=== PATIENT | male | born 1965 | race Caucasian/White ===

== ENCOUNTER 2016-07-02 08:14 | Day surgery (SDC) | payer BC, OTHER ==
[~2016-07-02] VITALS: Ht 182.9 cm; Wt 127.0 kg
--- NOTE | 2016-07-02 08:33 | ED Lower Extremity ---
General Chief Complaint: Lower Extremity Stated Complaint: LEFT LEG/KNEE INJURY Nursing Triage Note: ARRIVED IN A BACK OF A TRUCK AFTER FALLING DOWN 3 STARIS AND TWISTING HIS LEFT KNEE ET HE THINKS HIS LEG IS BROKE. Nursing Sepsis Screen: No Definite Risk Source: patient Exam Limitations: no limitations History of Present Illness Time seen by provider: 08:32 Initial Comments The patient is a 51-year-old white male who reports he was walking down the back steps at his home. The steps were relatively spongy and he felt as if he twisted his right knee causing him to fall down 2 or 3 steps. He was unable to stand. A neighbor had a leg brace which they applied and his son placed him in the back of a pickup and brought him to the emergency room. They had called ahead and a gurney was waiting he reports that there isn't much pain if he doesn 't move. There is no previous history of injury to either leg. Allergies and Home Medications Allergies Coded Allergies: No Known Drug Allergies (Unverified , 07/02/16) Home Medications No Active Prescriptions or Reported Meds Past Dkdholx-Asebtv-Aedujp Hx Patient Social History Alcohol Use: Occasionally Uses Recreational Drug Use: No Smoking Status: Never a Smoker Recent Foreign Travel: No Contact w/Someone Who Travel: No Recent Infectious Disease Expo: No Recent Hopitalizations: No Surgeries HX Surgeries: Yes Surgeries: Orthopedic Respiratory Hx Respiratory Disorders: No Cardiovascular Hx Cardiac Disorders: No Neurological Hx Neurological Disorders: No Reproductive System Hx Reproductive Disorders: No Genitourinary Hx Genitourinary Disorders: No Gastrointestinal Hx Gastrointestinal Disorders: No Musculoskeletal Hx Musculoskeletal Disorders: No Endocrine Hx Endocrine Disorders: No HEENT HX ENT Disorders: No Cancer Hx Cancer: No Psychosocial Hx Psychiatric Problems: No Physical Exam Vital Signs Vital Sign - Last 12Hours 07/02/16 08:17 Temp 98.0 Pulse 76 Resp 18 B/P (MAP) 133/88 Pulse Ox 96 Capillary Refill : Less Than 3 Seconds Progress/Results/Core Measures Results/Orders My Orders Orders - DONALD GOODRICH MD Femur, Left, 2 Views (07/02/16 08:34) Fentanyl Injection (Sublimaze Injection (07/02/16 08:45) Ondansetron Injection (Zofran Injectio (07/02/16 09:00) Ondansetron Injection (Zofran Injectio (07/02/16 08:48) Knee, Left, 3 Views (07/02/16 09:21) Mri Lt Lower Ext Joint W/O (07/02/16 10:45) Fentanyl Injection (Sublimaze Injection (07/02/16 11:00) Ondansetron Oral Dissolve Tab (Zofran (07/02/16 11:00) Medications Given in ED Current Medications Medications Dose Ordered Sig/Zak Route Start Time Stop Time Status Last Admin Dose Admin Fentanyl Citrate 50 mcg ONCE ONCE IVP 07/02/16 08:45 07/02/16 08:46 DC 07/02/16 08:45 50 MCG Fentanyl Citrate 50 mcg Q1H PRN IVP 07/02/16 11:00 07/02/16 11:01 50 MCG Ondansetron HCl 4 mg ONCE ONCE IVP 07/02/16 09:00 07/02/16 09:01 DC 07/02/16 08:51 4 MG Ondansetron HCl 4 mg ONCE ONCE PO 07/02/16 11:00 07/02/16 11:01 DC 07/02/16 11:01 4 MG Vital Signs/I&O Vital Sign - Last 12Hours 07/02/16 08:17 Temp 98.0 Pulse 76 Resp 18 B/P (MAP) 133/88 Pulse Ox 96 Blood Pressure Mean: 103 Departure Communication Progress Notes [address] Delarosa. He would be glad to see the patient. He suggested that if MR were available today that an MRI be done. This was possible and has been done. [address] Presley. There is a complete avulsion of the distal patellar tendon at the distal border of the patella. 1217 discussed the findings with Dr. Delarosa. The patient has been nothing by mouth and will be taken to the OR for reattachment later this afternoon. Cosleep Impression Impression: Primary Impression: ruptured distal left patellar tendon Disposition: ADMITTED INPATIENT Condition: Stable/Unchanged Decision to Admit/Date: Jul 02, 2016 Departure-Patient Inst. Referrals: NO,LOCAL PHYSICIAN (PCP/Family) Primary Care Physician Scripts No Active Prescriptions or Reported Meds DONALD GOODRICH MD Jul 02, 2016 08:33
[2016-07-02] MEDS ORDERED: fentaNYL INJECTION 100 MCG/2 ML AMP IVP ONE (08:45)
[2016-07-02] MEDS ORDERED: ONDANSETRON 4 MG/2 ML (SDV) Z0FRAN ONE ×2 (08:48→14:02)
[2016-07-02] MEDS ORDERED: ONDANSETRON 4 MG/2 ML (SDV) Z0FRAN IVP ONE (09:00)
--- NOTE | 2016-07-02 09:21 | Diagnostic Imaging Report ---
AP and lateral views of the left femur. INDICATION: Left swelling and pain. FINDINGS: No fracture, dislocation or radiopaque foreign body. There is a lateral osteophyte along the left acetabulum. There is also flattening of the head and neck junction in the left hip. These findings could correlate with tip impingement in the appropriate clinical setting. IMPRESSION: No acute process. Dictated by: Dictated on workstation # [id number]
--- NOTE | 2016-07-02 10:28 | Diagnostic Imaging Report ---
EXAM: 3 views of the left knee. INDICATION: Anterior knee pain at the tibial tuberosity level. FINDINGS: There is patella erendira. The upper aspect of the patellar tendon area appears poorly defined. There is a prominent suprapatellar effusion. There is a small well-defined osseous outgrowth projecting anteriorly from the patella. This could be a small osteochondroma. Significant soft tissue swelling anteriorly is seen. There is prominent ossification at the tibial tuberosity. There is no active erosion or fracture seen. There is a small bony outgrowth seen from the undersurface of the lateral aspect of the lateral tibial condyle which may relate to a small osteochondroma. IMPRESSION: Prominent anterior soft tissue swelling with poorly defined patellar tendon proximally. Correlate clinically for possible proximal patellar tendon rupture. There is a moderate suprapatellar effusion. Further evaluation with knee MRI is suggested. Dictated by: Dictated on workstation # [id number]
[2016-07-02] MEDS ORDERED: fentaNYL INJECTION 100 MCG/2 ML AMP IVP PRN ×3 (11:00→16:15)
[2016-07-02] MEDS ORDERED: ONDANSETRON 4 MG (ZOFRAN) ORAL DISSOLVE TAB PO ONE (11:00)
--- NOTE | 2016-07-02 12:30 | Diagnostic Imaging Report ---
PROCEDURE: MRI left joint lower extremity without contrast. TECHNIQUE: Multiplanar, multisequence non contrast-enhanced MRI of the left lower extremity was accomplished. INDICATION: Fall. Left knee pain. FINDINGS: There is a full-thickness tear of the proximal patellar tendon with 2.5 cm of retraction. There is hyperostosis inferiorly along the patella which could be secondary to old injury or reactive enthesopathy to pre-existing tendinosis. There is also suggestion of pre-existing tendinosis along the distal insertion of the patellar tendon with no acute injury at this location. The quadriceps distal tendon is thickened and is associated with slight increased signal compatible with tendinosis or old injury as well. There is significant soft tissue swelling around the anterior aspect of the knee with a moderate suprapatellar knee effusion and moderate distention of the prepatellar bursa. This is presumably posttraumatic. There is also full thickness tear with retraction of about 1.7 cm seen in the lateral patellofemoral retinaculum. This could be related to an unrelated coexisting or old injury. No significant marrow contusion is seen. This may suggest that such a severe tendon injury has occurred on an abnormal weakened tendon from prior injury or tendinosis. There is minimal subchondral focal edema in the mid patella associated with mild fissuring of the patellar cartilage mostly in the central and medial aspect. The cartilage in the medial and lateral compartments demonstrate minimal fissuring compatible with mild degenerative change. The ACL demonstrates slight thickening likely from an old injury with no disruption of its fibers however. The PCL is intact. The medial meniscus demonstrates no tear. The posterior root of the lateral meniscus demonstrates increased signal at its undersurface, may relate to degeneration. Similar abnormality is seen in the anterior root of the lateral meniscus. Nondisplaced tears are possible. The lateral collateral ligament complex and the MCL appear intact. The edema adjacent to the MCL is likely extension from the anterior soft tissue edema with no definite direct injury to the MCL. There is a 9 mm cystic lesion posterior to the intercondylar notch of the femur abutting the posterior joint capsule area suggestive of a ganglion cyst. No significant Hanley's cyst. IMPRESSION: 1. Retracted full-thickness tear of the proximal patellar tendon. There are signs of pre-existing tendinosis or possible component of an old injury to the patellar tendon and distal quadriceps tendon. 2. Large soft tissue swelling and distention of the prepatellar bursa with a moderate suprapatellar effusion. 3. There is a full-thickness tear with retraction along the lateral patellofemoral retinaculum. 4. Increased signal in the anterior and posterior roots of the lateral meniscus may relate to degeneration or nondisplaced focal tears. The findings were discussed with Dr. Corona at time of dictation. Dictated by: Dictated on workstation # [id number]
[2016-07-02] MEDS: LACTATED RINGERS 1,000 ML IV SCH ×3 (13:42→18:32)
[2016-07-02] MEDS ORDERED: MIDAZOLAM 2 MG/2 ML (VERSED) VIAL ONE (13:52)
[2016-07-02] MEDS ORDERED: fentaNYL INJECTION 250 MCG/5 ML AMP ONE (13:52)
[2016-07-02] MEDS ORDERED: LIDOCAINE PF 2% 10 ML (XYLOCAINE) AMP ONE (13:52)
[2016-07-02] MEDS ORDERED: SUCCINYLCHOLINE INJ 100 MG/5 ML SYR ONE (13:52)
[2016-07-02] MEDS ORDERED: proPOfol 200 MG/20 ML (DIPRIVAN) VIAL IV ONE (13:52)
[2016-07-02] MEDS ORDERED: ceFAZolin 2 GM/50 ML NS 50 ML IV ONE ×2 (13:53→14:00)
[2016-07-02] MEDS ORDERED: DEXAMETHASONE PF 10 MG/ML (DECADRON) VIAL ONE (14:02)
[2016-07-02] MEDS ORDERED: SEVOFLURANE (ULTANE) 15 ML INHAL SOLN ONE ×4 (14:02→16:05)
[2016-07-02] MEDS ORDERED: LACTATED RINGERS 1,000 ML IV ONE (14:02)
[2016-07-02] MEDS ORDERED: METOCLOPRAMIDE INJ 10 MG/2 ML (REGLAN) IV PRN (14:15)
[2016-07-02] MEDS ORDERED: ONDANSETRON 4 MG/2 ML (SDV) Z0FRAN IV PRN (14:15)
--- NOTE | 2016-07-02 14:15 | History & Physical-Surgical ---
HPO-Surgical History of Present Illness Chief Complaint: ARRIVED IN A BACK OF A TRUCK AFTER FALLING DOWN 3 STARIS AND TWISTING HIS LEFT chasing a cat. . While in the ED, x-rays showed patella erendira which indicated a torn patell tendon. MRI was perform comfirming a torn patella tendon with no fractures. Dr. Delarosa was consulted and felt the tendon needed to be repaired. Since the patient had been NPO since early this morning, he was taking to surgery today. Weight (Pounds): 280 Height (Feet): 6 Allergies and Home Medications Allergies Coded Allergies: No Known Drug Allergies (Unverified , 07/02/16) Home Medications No Active Prescriptions or Reported Meds Past Rdgfzih-Pkapmj-Oykduf Hx Patient Social History Alcohol Use: Occasionally Uses Recreational Drug Use: No Smoking Status: Never a Smoker Recent Foreign Travel: No Contact w/other who traveled: No Recent Hopitalizations: No Recent Infectious Disease Expo: No Surgeries HX Surgeries: Yes Surgeries: Orthopedic Respiratory Hx Respiratory Disorders: No Cardiovascular Hx Cardiovascular Disorders: No Neurological Hx Neurological Disorders: No Reproductive System Hx Reproductive Disorders: No Genitourinary Hx Genitourinary Disorders: No Gastrointestinal Hx Gastrointestinal Disorders: Yes Gastrointestinal Disorders: Gastroesophageal Reflux Musculoskeletal Hx Musculoskeletal Disorders: No Endocrine Hx Endocrine Disorders: No HEENT HX ENT Disorders: No Cancer Hx Cancer: No Psychosocial Hx Psychiatric Problems: No Exam Vital Signs Vital Signs 07/02/16 07/02/16 08:17 13:08 Temp 98.0 Pulse 77 Resp 16 B/P (MAP) 133/88 Pulse Ox 98 Capillary Refill : Less Than 3 Seconds General Appearance: Alert, Oriented X3 HEENT: PERRLA Respiratory: Clear to Auscultation, Normal Air Movement Cardiovascular: Regular Rate, Normal S1, Normal S2, No Murmurs Abdominal: Normal Bowel Sounds, Soft, No Tenderness, No Hepatosplenomegaly, No Masses Extremities: Other (left knee swollen and pain to the touch. Patella is retracted anterior to the knee joiont line. N/V/M/I left foot) Skin: No Rashes, No Breakdown, No Significant Lesion Neuro: Normal Gait, Normal Speech, Strength at 5/5 X4 Ext, Normal Tone, Sensation Intact, Cranial Nerves 3-12 NL, Reflexes 2+ Psych/Mental Status: Mental Status NL, Mood NL Assessment/Plan Assessment and Plan Assessment: Left knee patella tendon rupture Plan: Patient will be taken to surgery today for open patella tendon repair. Problems: JENI RESENDIZ Jul 02, 2016 14:15
--- NOTE | 2016-07-02 15:02 | Physical Therapy Progress Note ---
Therapy Progress Note Patient is in surgery for left patellar tendon repair. RN, Jeovanny, notified to contact ext. [phone] after 3 p.m., aPul, PT, if patient requires PT on this date. If not, PT will begin in a.m. RAJAN LIAO PT Jul 02, 2016 15:02
[2016-07-02] MEDS ORDERED: ROPIVACAINE 5MG/ML 30ML VIAL ONE (15:14)
[2016-07-02] MEDS ORDERED: PHENYLEPHRINE 100 MCG/ML 10 ML (ANESTHESIA) SYR ONE (15:15)
--- NOTE | 2016-07-02 15:40 | Progress Note-Post Operative ---
Post-Operative Progess Note Surgeon (s)/Chief Internal Auditor (s) Surgeon JOEY ALLEN MD Chief Internal Auditor: Rangel Elam PA-C Pre-Operative Diagnosis left patellar ligament tear Post-Operative Diagnosis same Post-Op Procedure Note Date of Procedure: Jul 02, 2016 Name of Procedure Performed: Repair left patellar ligament Description of the Procedure: see dictation Findings of the Procedure tear of patellar ligament Anesthesia Type General with femoral nerve block placed for postoperative pain control Estimated blood loss (mL): 100 ml (mostly hematoma from knee trauma) Packing: none Specimen(s) collected/removed none JOEY ALLEN MD Jul 02, 2016 15:40
[2016-07-02] MEDS: morphine INJ 10 MG/ML 1ML (SYR OR VIAL) IVP PRN ×3 (16:16→18:30)
[2016-07-02] MEDS: HYDROmorphone (DILAUDID) 2 MG/ML VIAL IVP PRN ×3 (16:32→16:53)
[2016-07-02 17:20] VITALS: BP 133/84
[2016-07-02] MEDS: oxyCODONE/APAP 5/325MG (PERCOCET 5) TABLET PO PRN (17:25)
[2016-07-02] MEDS: BACLOFEN 10 MG (LIORESAL) TAB PO PRN (17:26)
[2016-07-02] MEDS: DOCUSATE SODIUM 100 MG (COLACE) CAP PO SCH (19:59)
[2016-07-02 20:00] VITALS: BP 143/83
[2016-07-02] MEDS ORDERED: MEPERIDINE (DEMEROL) INJ 50 MG/ML IM PRN ×2 (20:00→20:15)
[2016-07-02] MEDS: HYDROcodone/APAP 10 MG/325 MG (LORTAB) TAB PO PRN (21:36)
[2016-07-03] VITALS: BP 122/80
[2016-07-03] MEDS: morphine INJ 10 MG/ML 1ML (SYR OR VIAL) IVP PRN ×5 (00:10→12:36)
[2016-07-03 04:00] VITALS: BP 126/79
[2016-07-03] MEDS: LACTATED RINGERS 1,000 ML IV SCH (04:25)
[2016-07-03] MEDS: HYDROcodone/APAP 10 MG/325 MG (LORTAB) TAB PO PRN ×2 (07:12→12:37)
[2016-07-03 08:00] VITALS: BP 126/87
[2016-07-03] MEDS: DOCUSATE SODIUM 100 MG (COLACE) CAP PO SCH (08:11)
[2016-07-03] MEDS: oxyCODONE/APAP 5/325MG (PERCOCET 5) TABLET PO PRN (08:11)
[2016-07-03] MEDS: BACLOFEN 10 MG (LIORESAL) TAB PO PRN (08:11)
[2016-07-03] MEDS ORDERED: OMEP20TA33 PO (10:40)
[2016-07-03] MEDS ORDERED: OXYC-202 PO (10:40)
[2016-07-03] MEDS ORDERED: BACL10TA PO (10:40)
--- NOTE | 2016-07-03 10:54 | Discharge Inst-Surgical ---
Discharge Inst-Surgical Depart Medication/Instructions New, Converted or Re-Newed RX: RX Given to Pt/Family Patient Instructions Patient is to follow up with Dr. Delarosa in [facility] [place]. Activity Activity as Tolerated: No touch toe weight bearing in brace with walker only. Walking Assistive Device: Walker Elevate Extremity: Elevate Above Heart, Elevate as Instructed Driving Instructions: No Driving/Refer to Dr. Martinez Discharge Diet: No Restrictions Symptoms to Report to Physicia: Extremity Discoloration, Numbness/Tingling, Swelling Increased, Bleeding Excessive, Urination Difficulty If Any Problems/Questions/Issu: Contact Your Physician Skin/Wound Care Infection Signs and Symptoms: Foul Odor of Wound Bathing Instructions: Shower Operative Area Clean and Dry: Keep Incision Clean/Dry Stitches/Mckenzie/Dermabond Dis: Care of Mckenzie Ice Pack: Ice On and Off Site JENI RESENDIZ Jul 03, 2016 10:54
--- NOTE | 2016-07-03 10:57 | Progress Note (SOAP) ---
Subjective Subjective/Events-last exam Patient doing fine and ready to go home. Objective Exam Vital Signs Date Time Temp Pulse Resp B/P (MAP) Pulse Ox O2 Delivery O2 Flow Rate FiO2 07/03/16 08:00 97.9 73 18 126/87 99 Room Air 07/03/16 04:00 97.1 74 20 126/79 94 Room Air 07/03/16 00:00 98.0 81 18 122/80 94 Room Air 07/02/16 20:00 98.9 87 19 143/83 95 Room Air 07/02/16 17:20 98.7 83 18 133/84 95 Room Air 07/02/16 13:08 77 16 98 I & O 07/03/16 07:00 Intake Total 3370 ml Output Total 1775 ml Balance 1595 ml Capillary Refill : Less Than 3 SecondsLess Than 3 Seconds General Appearance: No Apparent Distress, WD/WN HEENT: PERRL/EOMI, TMs Normal, Normal ENT Inspection, Pharynx Normal Neck: Full Range of Motion, Normal Inspection, Non Tender, Supple Peripheral Pulses: 4+ Dorsalis Pedis (R) Gastrointestinal: non tender, soft Extremity: Normal Capillary Refill, Normal Inspection Neurologic/Psychiatric: Alert, Oriented x3 Skin: Normal Color Other comments Dressing dry clean and intact. Clinical Quality Measures DVT/VTE Risk/Contraindication: Risk Factor Score Per Nursin RFS Level Per Nursing on Admit: 1=Low/No VTE PPX JENI RESENDIZ Jul 03, 2016 10:57
--- NOTE | 2016-07-03 11:31 | Physical Therapy Evaluation ---
PT Evaluation-General Medical Diagnosis Admission Date Jul 02, 2016 at 15:46 Medical Diagnosis: Rupture (L) distal patellar tendon with repair Onset Date: Jul 02, 2016 Therapy Diagnosis Therapy Diagnosis: impaired gait Height/Weight Height (Feet): 6 Height (Inches): 0.00 Weight (Pounds): 280 Weight (Ounces): 0.0 Precautions Precautions/Isolations: Fall Prevention, Standard Precautions Weight Bear Status Weight Bearing Restriction: Touch Toe Bearing Location Restriction: L LE Comments knee immobilizer on at all times Referral Physician: Esvin Delarosa MD Reason for Referral: Evaluation/Treatment Medical History Pertinent Medical History: GERD Current History 07/02/16 patient was trying to scare of a stray cat. He lost his balance and fell down 3 steps. Pt tore the patellar tendon and underwent surgery on . Social History Home: Single Level Current Living Status: Spouse Entry Into Home: Stairs With Railing PT Steps Into Home: 3 Prior/Core FIM Prior Level of Function Functional [place] Measure 0=Not Assessed/NA 4=Minimal Assistance 1=Total Assistance 5=Supervision or Setup 2=Maximal Assistance 6=Modified [place] 3=Moderate Assistance 7=Complete [place] Bed Mobility: 7 Transfers (B,C,W/C) (FIM): 7 Gait: 7 Locomotion: 7 PT Evaluation-Current Subjective Pt reports he was full independent prior to this event. This was just a freak accident. He notes that he is currently not in pain, but is heavily medicated so not sure how his balance will be. Objective Patient Orientation: Normal For Age Problem Solving: Good Attachments: IV ROM/Strength ROM Upper Extremities WFL ROM Lower Extremities (R) leg is WFL, (L) hip is WFL for flex and ABD, (L) knee is not tested Strength Upper Extremities 5/5 throughout Strenght Lower Extremities (R) 5/5 throughout, (L) hip flex 3+/5 Neuromuscular (Tone, Coordination, Reflexes) intact Sensory Vision: Wears Glasses Hearing: Functional Hand Dominance: Right Sensation Right Upper Extremit: Intact Sensation Left Upper Extremity: Intact Sensation Right Lower Extremit: Intact Sensation Left Lower Extremity: Intact Transfers Functional [place] Measure 0=Not Assessed/NA 4=Minimal Assistance 1=Total Assistance 5=Supervision or Setup 2=Maximal Assistance 6=Modified [place] 3=Moderate Assistance 7=Complete [place] Transfers (B, C, W/C) (FIM): 4 Scootin Supine to/from Sit: 4 Sit to/from Stand: 4 Gait Mode of Locomotion: Walk Anticipated Mode of Locomotion: Walk Distance (FIM): 9=480-71 ft Distance: 50 Gait Level of Assist: 4 Gait Persons Needed: 1 Gait Assistive Device: Crutches Comments/Gait Description Ambulated at toe touch wt bearing status using both crutches and a FWW. Patient felt he was more comfortable on the walker for right now because of pain medication. Balance Sitting Static: Normal Sitting Dynamic: Normal Standing Static: Fair Standing Dynamic: Fair Assessment/Needs Pt needs minimal assistance to get the (L) leg in and out of bed. He needs minimal assist for steadying during standing and gait activities. Patient shows potential to improve balance during gait using axillary crutches once his pain levels decline and pain medication use is decreased. For now a FWW is recommended for ambulation. Rehab Potential: Good Equipment Needs front wheel walker, raised toilet seat or commode PT Site Auditor Goals Correction Goals PT Correction Goals Time Frame: Jul 05, 2016 Transfers (B,C,W/C) (FIM): 6 Gait (FIM): 5 Gait distance (FIM): 3=549-84 ft Distance: 100 Gait Level of Assist: 5 Gait Assistive Device: FWW PT Plan Problem List Problem List: Safety, Gait, Transfer Treatment/Plan Treatment Plan: Continue Plan of Care Treatment Plan: Bed Mobility, Gait, Safety, Transfers Work on home safety training and progression of gait. Pt was educated on stairs but was not physically able to perform stairs at time of evaluation. He reports he has someone to build him an extra stair rail and a strong son who can help him. Treatment Duration: Jul 05, 2016 # of days/week 1 Minutes/Day (M-F): 5 Minutes/Day (Sat/[place]): 15 Pt/Family Agrees w/Plan: Yes Safety Risks/Education Patient Education: Gait Training, Transfer Techniques, Steps, Reviewed Precautions, Safety Issues Teaching Recipient: Patient, Family Teaching Methods: Demonstration, Discussion Discharge Recommendations Therapy D/C Recommendations: Home w/ Family Support Equpiment Recommendations-D/C: 3 in 1 Commode, Front Wheeled Walker Target Placement home with family Time/GCodes Time In: 840 Time Out: 920 Total Billed Treatment Time: 40 Total Billed Treatment 40 minute eval, visit WHITNEY JANE PT Jul 03, 2016 11:31
[2016-07-03] MEDS: oxyCODONE/APAP 10/325MG (PERCOCET 10) TABLET PO PRN ×2 (11:36→11:42)
[2016-07-03 11:45] VITALS: BP 128/81
[2016-07-03 14:30] VITALS: BP 128/81
--- NOTE | 2016-07-05 13:50 | OPERATIVE REPORT ---
PROCEDURE PHYSICIAN: JOEY DELAROSA DATE OF PROCEDURE: 07/02/2016 PREOPERATIVE DIAGNOSIS: Disruption of left patellar ligament. POSTOPERATIVE DIAGNOSIS: Disruption of left patellar ligament. PROCEDURE: Repair of left patellar ligament. SURGEON: Dr. Delarosa ASSISTING: LUCY Vazquez. SENIOR RESIDENT CARE DIRECTOR SURGEON DUTIES: Patient positioning, retraction, use of internal fixation devices, wound closure, application sterile dressings, application of hinged knee brace. The use of lpn medical assistant is medically indicated. ANESTHESIA: General with placement of femoral nerve block. Placement of femoral nerve block is medically indicated for postoperative pain control. ACOUSTICS TEACHER and anesthesiologist were consulted for their expertise and placement of the block. IMPLANTS: Synthes 1.7 mm cable x1. BLOOD LOSS: 100 mL. COMPLICATIONS: None. INDICATIONS: This man was walking down the steps and tripped and fell injuring the left knee. He was seen in the emergency room. A MRI was done and he was noted to have a patellar ligament disruption. He has been n.p.o. and is brought to surgery for surgical repair. PROCEDURE IN DETAIL: After informed consent, the patient was transported to the operating room. He was placed on the operating table in the supine position. General anesthesia was induced. A roll was placed beneath the left hip. The left lower extremity was prepped with DuraPrep and draped in the sterile fashion and Ioban was placed in the skin. The knee was opened through a midline anterior incision and was carried out through subcutaneous tissues down to the extensor mechanism. Extensive hematoma came forth and was irrigated thoroughly from the knee joint. The patellar ligament was identified and was noted to be disrupted from the inferior pole of the patella with some flap of tendon still left to the patella. He had an inferior pole exostosis off of the patella. It protruded beyond the patella ligament attachment. I felt this could have been a cause of the disruption. Removed the exostosis with a rongeur. Three number 5 Ethibond Hilda type sutures were placed within the patellar ligament. Drill holes were made in the patella and a Toscano passer was used to pull all 6 suture arms through the patella to the superior pole of the patella. The sutures were clamped with hemostats. Next due to the repair and his morbid obesity, I elected to place a cerclage around the extensor mechanism to protect the repair. A Synthes cable was opened. It was placed through the quadriceps tendon above the superior pole of the patella and run down the superficial tissues to the medial lateral retinacula laterally. A drill hole was made in the tibial tubercle and the cable was run through the tibial tubercle. It was then tensioned to the appropriate tension taking care not to pull the patella down to far. The knee could be flexed to 90 degrees with the cable. Next, the sutures all were tied above the superior pole of the patella and the tension was adjusted and the cable was crimped and cut short. Next, additional repair was carried out with number 2 Ethibond suture for the medial lateral retinaculum as well as the flap over the patellar tendon. Repair appeared to be satisfactory. The wound was thoroughly irrigated. The peritenon subcutaneous tissues were closed with interrupted number 1 Vicryl followed by running 2-0 Vicryl and ying on the skin. A sterile dressing was applied and the tourniquet was deflated. He was left the operating room where a femoral nerve block was carried out by the ACOUSTICS TEACHER. He was placed in a hinged knee brace with the knee locked in full extension. He was then taken to the recovery room in stable condition having tolerated this procedure well. Job ID: [id number] Dictated Date: 07/02/2016 15:32:04 Weapons Officer [employer] Date: 07/05/2016 13:35:12 / qasim
== END 2016-07-03 14:36 | disposition home or self-care (01) ==
LOC: EDUNIT# 08:14 → ER 08:16 → SDC 12:46 → 4TH 12:46 → SDC 15:40 → 4TH 15:40 → UNDOADMOB 15:46 → 4TH 15:46 → UNDODISOB 07-03 14:36 → SDC 07-03 14:36
PROVIDERS: ATTEND Orthopaedic Surgery
DX: S76.112A Strain of left quadriceps muscle, fascia and tendon, initial encounter (principal); E66.01 Morbid (severe) obesity due to excess calories; Z68.38 Body mass index [BMI] 38.0-38.9, adult; W10.9XXA Fall (on) (from) unspecified stairs and steps, initial encounter; Y99.8 Other external cause status
CPT/HCPCS: 73552; 73562; 73721; 87081; 96374; 96375; 96376; 99285

== ENCOUNTER 2016-07-19 19:14 | Emergency (ER) | payer OTHER ==
[~2016-07-19] VITALS: Ht 182.9 cm; Wt 127.0 kg
[~2016-07-19 19:14] MED LIST: BACL10TA PO; EPINEPHrine 0.1 MG/ML 10 ML (HOSPIRA) SYR IJ ONE; OMEP20TA33 PO; OXYC-202 PO
--- NOTE | 2016-07-19 19:34 | ED CPR ---
HPI-CPR General Stated Complaint: CODE BLUE Source of Information: EMS, Family History of Present Illness Time Seen by Provider: 19:14 Initial Comments To ER per [facility] with reports of CODE BLUE. Patient's family is also present. They state the patient has had a ruptured patellar tendon on the left and had surgery to repair this 2 weeks ago. Since then he's been having persistent left lower extremity swelling. Tonight the foot became cool to touch and had a discoloration to it. They loaded him up into the car to bring him here to be evaluated for this and while in the car he began to have what appeared to be seizure activity and quit breathing. They summoned EMS and police arrived on scene and started CPR at around 1825 according to [facility]'s [place] who is also present. EMS arrived on scene and gave 4 rounds of epinephrine, sodium bicarbonate established IV access and intubated the patient. They did have a shockable rhythm according to the AED at one point and did deliver that shock. Upon arriving to our emergency room at 1914 initial rhythm check showed asystole. We continued CPR, right femoral pulse was palpable during CPR, gave 3 additional rounds of epinephrine. During the second rhythm check he did have PEA brifely (for about 4-8 seconds) but not a shockable rhythm. While CPR was continued I discussed this with the family. I discussed his poor prognosis and unlikelihood to recover from this given that he 's already had 7 rounds of epinephrine without any meaningful response. states "stop". CPR was discontinued. Initial Complaints: Collapsed Witnessed Arrest: Yes Bystander CPR: Yes Down-Time Before ACLS: 5 Paramedics Initial Findings: V-FIB (or V tach--shock was indicated by AED) Pre Hospital Treatment: CPR/Thumper, Defibrillation, Intubation, IV Fluids, Epinephrine (mg), Sodium Bicarb (amps) Allergies and Home Medications Allergies Coded Allergies: No Known Drug Allergies (Unverified , 07/02/16) Home Medications Baclofen 10 Mg Tablet, 10 MG PO TID PRN for muscle spasm for 30 Days, #30 Ref 0 Prescribed by: JENI RESENDIZ on 07/03/16 1040 Omeprazole Magnesium 20 Mg Tablet.dr, 20 MG PO PRN for 30 Days, #30 Ref 0 Prescribed by: JENI RESENDIZ on 07/03/16 1040 Oxycodone HCl/Acetaminophen 1 Each Tablet, 1 EACH PO PRN for 28 Days, #60 Ref 0 Prescribed by: JENI RESENDIZ on 07/03/16 1040 Review of Systems Constitutional: other (Call) Past [id number]-[id number]-Iilahh Hx Patient Social History Type Used: Cigars Recent Hopitalizations: No Surgeries HX Surgeries: Yes Surgeries: Orthopedic Respiratory Hx Respiratory Disorders: No Cardiovascular Hx Cardiac Disorders: No Neurological Hx Neurological Disorders: No Reproductive System Hx Reproductive Disorders: No Genitourinary Hx Genitourinary Disorders: No Gastrointestinal Hx Gastrointestinal Disorders: Yes Gastrointestinal Disorders: Gastroesophageal Reflux Musculoskeletal Hx Musculoskeletal Disorders: No Endocrine Hx Endocrine Disorders: No HEENT HX ENT Disorders: No Cancer Hx Cancer: No Psychosocial Hx Psychiatric Problems: No Physical Exam Vital Signs Capillary Refill : General Appearance: Obese (purple discoloration from the nipple line superiorly ), Other (obese) HEENT: Other (intubated) Neck: Full Range of Motion, Normal Inspection Respiratory: No Accessory Muscle Use, No Respiratory Distress, Other (Upon arrival had an endotracheal tube at 27 cm at the teeth. Breath sounds were only heard on the right and not on the left. I asked respiratory therapy to deflate the cuff, withdraw the tube to 24 cm and reinflated. Breath sounds were then heard in both lung davis) Extremity: Other (left leg is in a knee immobilizer) Skin: Cool, Mottled Critical Care Note Critical Care Start Time: 19:14 Stop Time: 19:25 Total Time (minutes) 11 Date of : July 19, 2016 Time of : 19:25 Progress My Supervising physician Dr. Kraus present in the room as well. Agrees with care. Time of called at 1925. Had been coded since around 1830 per [facility]. Departure Communication Progress Notes I did call [facility] coroner Dr. MONTILLA who recommends having Vasquez Hobbs come out and evaluate. Impression Impression: Primary Impression: Cardiac arrest Disposition: 20 Condition: Departure-Patient Inst. Referrals: NO,LOCAL PHYSICIAN (PCP/Family) Primary Care Physician PACHECO HENDRICKS APRN July 19, 2016 19:34
[2016-07-19 23:51] VITALS: BP 0/0
== END 2016-07-19 23:51 | disposition expired ==
LOC: EDUNIT# 19:14 → ER 19:15
DX: I46.9 Cardiac arrest, cause unspecified (principal); E66.9 Obesity, unspecified; R22.42 Localized swelling, mass and lump, left lower limb
CPT/HCPCS: 93041; 99291